=== PATIENT | male | born 1995 | race Caucasian/White ===

== ENCOUNTER → 2016-06-15 | Outpatient (CLI) | payer OTHER ==
--- NOTE | 2016-06-15 10:41 | DIAGNOSTIC IMAGING REPORT ---
RIGHT SHOULDER 4 VIEWS CLINICAL HISTORY: Right shoulder pain. FINDINGS: 4 views of the right shoulder are obtained. No prior studies are available for comparison at the time of dictation. The skeletal structures are well mineralized. No fracture or dislocation is seen. There is mild widening at the acromioclavicular joint which measures 11 mm. The glenohumeral articulation is preserved. The overlying soft tissues are within normal limits. The imaged right lung parenchyma appears clear. IMPRESSION: 1. No fracture or dislocation is seen in the right shoulder. 2. There is mild widening at the acromioclavicular joint. Correlate clinically for evidence of shoulder separation. Electronically signed by: Ahsan French M.D. 06/15/2016 10:39 AM Dictated Date/Time: 06/15/2016 10:38 AM
== END | disposition home or self-care (01) ==
LOC: C.RDSM 14:17
PROVIDERS: ATTEND Family Medicine
DX: M25.511 Pain in right shoulder (principal)